=== PATIENT | female | born 1955 | race Caucasian/White ===

== ENCOUNTER → 2018-11-23 08:55 | Outpatient (CLI) | payer OTHER, SELFPAY ==
--- NOTE | 2018-11-23 | DI.US.S_ITS ---
PROCEDURE: US ARTERIAL DUPLEX UE RT COMPARISON: None. INDICATIONS: Raynaud's syndrome without gangrene FINDINGS: Flow velocity at the right subclavian is 114 cm/s, triphasic. The axillary artery is also triphasic in flow with 116 cm/s flow velocity. The right brachial artery then becomes monophasic in flow, with 98 cm/s and the right radial artery and ulnar artery also are monophasic in flow characteristics with 82 cm/s and 55 cm/s flow velocities respectively. At the palmar arch there is reflux flow with radial compression and elevated flow with ulnar compression. This indicates adequate collateral flow. IMPRESSION: Monophasic flow velocities identified from the brachial through the ulnar arteries including the radial artery while there is triphasic flow at the subclavian and axillary arteries. Arterial contraction as cause of the transition from triphasic to monophasic flow is the likely cause in this clinical circumstance. Palmar arch appears patent allowing reversed flow with radial artery compression (allowing collateral flow from the ulnar artery). Dictated by: Gamaliel Ward M.D. on 11/23/2018 at 11:38 Approved by: Gamaliel Ward M.D. on 11/23/2018 at 11:43
== END ==
PROVIDERS: Family Provider Family Medicine; Visit Provider Nurse Practitioner Family
DX: I73.00 Raynaud's syndrome without gangrene (principal)
CPT/HCPCS: 93931